=== PATIENT | male | born 1990 ===

== ENCOUNTER 2017-02-06 22:24 | Emergency (ER) | payer OTHER ==
[2017-02-06 22:33] VITALS: BP 133/83; RESP 16; TEMP 99.5
--- NOTE | 2017-02-06 23:40 | ED PDOC ---
Lower Extremity Pain/Injury Time Seen by Provider: 02/06/17 22:37 Chief Complaint (Nursing): Lower Extremity Problem/Injury Chief Complaint (Provider): Lower Extremity Injury History Per: Patient History/Exam Limitations: no limitations Onset/Duration Of Symptoms: Hrs (earlier today) Current Symptoms Are (Timing): Still Present Additional Complaint(s): 26 year old male presents to ED with complaints of a left lower extremity injury since earlier today. Patient states that he was playing football when he "cut across the field" and felt a "pop" in his left ankle. Notes that he was initially able to walk but later felt numbness to the area and noted difficulty taking steps. PCP: None - Ankle/Foot Description Of Injury: Other ("pop in left ankle") Currently Unable To: Bear Weight Past Medical History Reviewed: Historical Data, Nursing Documentation, Vital Signs Vital Signs: Last Vital Signs Temp 99.5 F 02/06/17 22:30 Pulse 110 H 02/06/17 22:30 Resp 16 02/06/17 22:30 BP 133/83 02/06/17 22:30 Pulse Ox 98 02/06/17 22:30 - Family History Family History: States: No Known Family Hx - Home Medications Home Medications: Ambulatory Orders Medication Instructions Recorded Ibuprofen [Motrin Tab] 600 mg PO Q6 #30 tab 02/07/17 - Allergies Allergies/Adverse Reactions: Allergies Allergy/AdvReac Type Severity Reaction Status Date / Time No Known Allergies Allergy Verified 02/06/17 22:33 Wells Criteria for PE - Wells Criteria for Pulmonary Embolism Clinical Signs and Symptoms of DVT: No P.E is #1 Diagnosis, or Equally Likely: No Heart Rate >100: Yes Hemoptysis: No Malignancy w/treatment within 6 months, or palliative: No Total Score: 1.5 Review of Systems ROS Statement: Except As Marked, All Systems Reviewed And Found Negative Musculoskeletal: Positive for: Other (left ankle pain) Physical Exam - Reviewed Nursing Documentation Reviewed: Yes Vital Signs Reviewed: Yes - Physical Exam Appears: Positive for: No Acute Distress Skin: Positive for: Normal Color, Warm, Dry Extremity: Positive for: Other (LLE: Decreased strength with plantar flexion. Normal dorsiflexion. Left Achilles: clear step up and palpation of tendon. Normal right Achilles). Negative for: Swelling Neurologic/Psych: Positive for: Alert, Oriented. Negative for: Motor/Sensory Deficits - ECG O2 Sat by Pulse Oximetry: 98 (RA) Pulse Ox Interpretation: Normal Medical Decision Making Medical Decision Makin Initial impression: Achilles tendon rupture Initial plan: * XR ANKLE LEFT 0000 Pt. seen adn examined by podiatry, splinted. Will f/u w/ Dr. He as outpatient. Scribe Attestation: Documented by Sameera Miller acting as a scribe for Mike Lara MD. Scribe Attestation: All medical record entries made by the Scribe were at my direction and personally dictated by me. I have reviewed the chart and agree that the record accurately reflects my personal performance of the history, physical exam, medical decision making, and the department course for this patient. I have also personally directed, reviewed, and agree with the discharge instructions and disposition. Disposition - Clinical Impression Clinical Impression: Achilles tendon rupture - Patient ED Disposition Is Patient to be Admitted: No - Disposition Referrals: Zeenat He DPM [Staff Provider] - Disposition: Routine/Home Disposition Time: 00:52 Condition: STABLE Prescriptions: Ibuprofen [Motrin Tab] 600 mg PO Q6 #30 tab Instructions: Achilles Tendon Rupture (ED) Forms: [employer] ([place])
--- NOTE | 2017-02-06 23:46 | CP.PCM.CON ---
History of Present Illness - History of Present Illness History of Present Illness: 26 y/o male seen in ED for left ankle pain following a football injury. Pt states he was cutting across the field and planting his left foot when he felt a sharp pop in the back of his ankle. Pt states he initially felt fine but within minutes the area started to feel painful and numb. Pt states he got a cab to the ED shortly thereafter because he felt it was too painful to walk. Pt states that he cannot point his foot downwards at all. Pt denies tingling or shooting pains. Pt denies F/C/N/V/CP/SOB. PMH: denies PSH: denies ALL: NKDA Social: social EtOH use. Denies cigarette or illicit drug use Review of Systems - Review of Systems All systems: reviewed and no additional remarkable complaints except (per HPI) Meds Home Medications: Home Medication List Medication Instructions Recorded Confirmed Type Ibuprofen [Motrin Tab] 600 mg PO Q6 #30 tab 02/07/17 Rx Allergies/Adverse Reactions: Allergies Allergy/AdvReac Type Severity Reaction Status Date / Time No Known Allergies Allergy Verified 02/06/17 22:33 Physical Exam - Constitutional Appears: Well, Non-toxic, No Acute Distress - Head Exam Head Exam: ATRAUMATIC, NORMAL INSPECTION, NORMOCEPHALIC - Eye Exam Eye Exam: EOMI, Normal appearance, PERRL Pupil Exam: PERRL - ENT Exam ENT Exam: Mucous Membranes Moist - Respiratory Exam Respiratory Exam: NORMAL BREATHING PATTERN - Cardiovascular Exam Cardiovascular Exam: REGULAR RHYTHM, +S1, +S2 - GI/Abdominal Exam GI & Abdominal Exam: Normal Bowel Sounds, Soft - Rectal Exam Rectal Exam: Deferred - Extremities Exam Extremities exam: Positive for: normal capillary refill, normal inspection, pedal pulses present Additional comments: Lower extremity exam: Vasc: DP/PT pulses present to B/L lower extremities. LLE exhibits perimalleolar edema posteriorly at level of Achilles insertion. CFT < 3 sec to all digits. Temp gradient warm to cool on R, warm to warm on L. Derm: No ecchymosis present. Superficial abrasions with mild bleeding noted to anterior aspect of R patella and medial aspect of L ankle. No cellulitic changes , no erythema. Neuro: Protective sensation grossly intact B/L Ortho: Severe tenderness to palpation of L Achilles at level of insertion extending 6 cm proximal to insertion. Pt unable to perform active or passive ankle plantarflexion. [place] test positive. No tenderness upon pressure or palpation of proximal calf. Results - Vital Signs Recent Vital Signs: Last Vital Signs Temp 99.5 F 02/06/17 22:30 Pulse 110 H 02/06/17 22:30 Resp 16 02/06/17 22:30 BP 133/83 02/06/17 22:30 Pulse Ox 98 02/06/17 23:42 Assessment & Plan (1) Achilles tendon injury Assessment and Plan: Pt seen and evaluated in ED Discussed plan in detail with attending Dr. He X-rays of L ankle reveal obliteration of Kager's triangle with possible disruption of Achilles tendon. No acute fractures or dislocations, joints in good alignment Posterior splint applied to LLE and patient dispensed crutches Instructed to take Ibuprofen as needed for pain Pt to follow up tomorrow with Dr. He in her office Thank you for allowing us to participate in the care of this patient Status: Acute
[2017-02-07 01:36] VITALS: PULSE 83; O2SAT 99
--- NOTE | 2017-02-07 15:13 | RAD ---
PROCEDURE: Left Ankle Radiographs. HISTORY: likely achilles tendon rupture COMPARISON: None FINDINGS: BONES: Normal. No fracture. JOINTS: Normal. No osteoarthritis. Ankle mortise maintained. Talar dome intact SOFT TISSUES: Normal. OTHER FINDINGS: None. IMPRESSION: No acute findings related to/accounting for the clinical presentation. No
== END 2017-02-07 01:44 | disposition home or self-care (01) ==
LOC: H.ER 22:24
DX: S86.012A Strain of left Achilles tendon, initial encounter (principal); X58.XXXA Exposure to other specified factors, initial encounter; Y93.61 Activity, american tackle football